=== PATIENT | female | born 1990 ===

== ENCOUNTER 2016-07-12 13:43 | Emergency (ER) | payer MEDICAID, OTHER ==
[~2016-07-12] VITALS: Ht 162.6 cm; Wt 52.3 kg
[~2016-07-12 13:43] MED LIST: LEVO50TA5 PO
[2016-07-12 13:45] VITALS: BP 116/66; PULSE 86; RESP 16; O2SAT 98
--- NOTE | 2016-07-12 15:39 | ED.REPORT ---
HPI-Back Pain Under 40 Date of Service July 12, 2016 ED Provider: Dr. Craven 26 y/o female with no pertinent hx presents to the ED complaining of lower back pain, onset 2 hours ago. She tripped over a car seat and landed on her hip on the floor. She reports numbness in her right leg going up to her hip. The pt states "the pain is travelling upwards with heat". Nursing Notes Stated Complaint: GLF,NUMBESS AND STABBING PAIN IN RT LEG AND BACK Chief Complaint: Back Pain or Injury Nursing Notes Reviewed: Yes Allergies: Coded Allergies: carisoprodol (Verified Allergy, Intermediate, Rash, 07/12/16) erythromycin base (Verified Allergy, Intermediate, Rash, 07/12/16) methocarbamol (Verified Allergy, Intermediate, Rash, 07/12/16) Scheduled Levothyroxine-Expunged Drug, Do Not Renew! (Synthroid-Expunged Drug, Do Not Renew!) 50 Mcg Tablet 0.05 MG PO DAILYAC 0.05 MG = 50 MCG Scheduled PRN Naproxen (Naproxen) 500 Mg Tab 500 MG PO BID PRN PRN For Pain oxyCODONE-Acetaminophen 5-325 mg (oxyCODONE-Acetaminophen 5-325 mg) 1 Each Tablet 1-2 TAB PO Q6H PRN PRN For Pain General Time Seen by MD: 15:39 Chief Complaint Back pain (post fall) Hx Obtained From: Patient Sudden in Onset?: Yes Onset Occurred: 1 - 4 hours ago Symptom Duration: Since onset Caused by: Fall Location: : Spinal lumbar area: Spinal sacral area Quality: Painful Radiation: : Right leg above knee Severity: Current: Severe Severity: Maximum: Severe Recent Healthcare: No recent doctor visit Similar Sx Previous: No Past Medical History Past Medical History Back fracture at 18 Thyroid issues Past Surgical History No history of spinal surgery Smoking History Unknown if Ever Smoker Social History Alcohol Use: "Social" Drug Use: Denies drug use Other Social History: Good social support Ambulatory Status Independent Review of Systems Musculoskeletal: Reports: Back pain, Extremity pain (right leg), Joint pain ( right hip) Complete sys rev & neg: except as marked. Physical Exam Initial Vital Signs Vital Signs (First) Date Time Temp Pulse Resp B/P Pulse Ox O2 Delivery O2 Flow Rate FiO2 07/12/16 13:45 36.4 86 16 116/66 98 Room Air Initial VS: Reviewed Head / Eyes: Atraumatic, Normocephalic, PERRL ENT: Mucous membranes moist, Conjunctiva normal, No scleral icterus Neck: Supple, Non-tender, Full range of motion Respiratory: Breath sounds normal, Clear to auscultation, No respiratory distress Cardiovascular: Heart sounds normal, Intact distal pulses Abdomen / GI: Soft, Non-tender, No guarding, No rebound, No distention General/Constitutional: Awake, Alert Distress / Hydration: Positive: Distress severe Back: Full range of motion Neurologic: Oriented X3, Speech NL, No motor deficits, No sensory deficits Lower Extremity / Pelvis / MS: Neurologic intact, Vascular intact Pain in L3 and sacrum region Pain in ischial tuberosity. Skin: No rash, Warm, Dry No bruising or ecchymosis. Interpretation & Diagnostics X-ray Lumbar spine 2 or 3 view. IMPRESSION: Mild degenerative changes of the lower lumbar spine. No acute fractures. Dictated by: Andrea Montano M.D. on 07/12/2016 at 15:25 Approved by: Andrea Montano M.D. on 07/12/2016 at 15:29 Lab Results Interpretation Test 07/12/16 15:31 Hold Urine Received (Received) X-Ray Interpretation Xray Interpretation: IMPRESSION: No acute fracture or dislocation of the right hip. Dictated by: Andrea Montano M.D. on 07/12/2016 at 15:22 Approved by: Andrea Montano M.D. on 07/12/2016 at 15:23 X-Ray Ordered: Hip right Re-Eval/Medical Decision Re-Evaluation/Progress : Time of Eval: 17:27 Patient Status: Mild relief Re-Evaluation/Progress Note: Rechecked pt. Discussed lab, imaging results and diagnosis. Informed the pt of the plan to discharge. Pt understands and agrees with plan. F/U instructions and RTER warning given. All questions addressed. Counseled Regarding: Diagnosis, Lab results, Need for follow-up, When/why to return to ED Discharge & Departure Impression: Primary Impression: Fall Encounter type: initial encounter Qualified Code: W19.XXXA - Unspecified fall, initial encounter Ruled Out: Fracture Disposition: Home All VS Reviewed: Yes Condition: Stable Patient Instructions: Acute Low Back Pain (ED) Additional Instructions: Your xray results of your spine, pelvis and hips were normal. There is no evidence of a fracture. Your leg and hip is likely to hurt more tomorrow- this is normal healing. Take naproxen 500mg am and pm to control the pain and inflamation. You can add 1 -2 Percocet every 6 hours for severe pain over the next for a couple of days. Use an ice pack today. Switch between hot and cold pack as needed after today. Good luck with being up and moving (the more you move, the faster you will heal ) with the "ousmane sore butt". Referrals: KRYSTYNA ARMENDARIZ (PCP) Scribe Attestation Portions of this note were transcribed by Leatha Vanessa. I, , personally performed the history, physical exam and medical decision-making;I reviewed and confirmed the accuracy of the information in the transcribed note. Signed by Dulce Sanchez. 07/12/16 [id number] copies to: [facility] Ciara Martinez MD July 12, 2016 15:39 Leatha Vanessa July 12, 2016 16:36
--- NOTE | 2016-07-12 16:25 | DRSVH ---
PROCEDURE: X-RAY PELVIS W/LAT HIP (RT) ([id number]) INDICATIONS: fell landed on hip severe pain. TECHNIQUE: AP pelvis and lateral view of the right hip acquired. COMPARISON: [facility], CR, SPINE LUMB 2 OR 3VW, 04/16/2012, 13:14. [facility], CR, PELVIS 1 OR 2VW, 07/19/2009, 20:56. FINDINGS: Bones: No acute fracture or dislocation of the right hip is evident. No significant degenerative nickolas nges are evident. There are mild degenerative changes of the sacroiliac joints. There appears to be transitional lumbosacral anatomy with bony fusion of the L5 transverse processes with the sacral ala . No suspicious osseous lesions are evident. Soft tissues: Overlying postoperative changes are noted. No suspicious soft tissue densities. IMPRESSION: No acute fracture or dislocation of the right hip. Dictated by: Andrea Montano M.D. on 07/12/2016 at 15:22 Approved by: Andrea Montano M.D. on 07/12/2016 at 15:23
--- NOTE | 2016-07-12 16:30 | DRSVH ---
PROCEDURE: X-RAY LUMBAR SPINE, 2 OR 3 VIEW INDICATIONS: pain previous fusions TECHNIQUE: 3 views of the lumbar spine were acquired. COMPARISON: [facility], , SPINE LUMB 2 OR 3VW, 04/16/2012, 13:14. FINDINGS: Bones: There is transitional lumbosacral anatomy. Rudimentary ribs at T12 are present. There is bon y fusion of the L5 transverse process with the sacral ala. 4 lumbar type vertebral bodies are presen t. The lowest intervertebral disk space is designated as L4-5. A rudimentary disc space at L5-S1 is present. The vertebral body heights are well-maintained without evidence to suggest an acute compre ssion fracture. The bone mineralization is within normal limits. Degenerative changes of the lower lumbar facet joints are present. Intervertebral disc spaces are we ll maintained with the exception of L5-S1. This appearance is unchanged. There is straightening of the normal lumbar lordosis. No spondylolisthesis is evident. Degenerative changes of the sacroiliac joints are present. Soft tissues: The soft tissues of the imaged abdomen and pelvis are within normal limits. IMPRESSION: Mild degenerative changes of the lower lumbar spine. No acute fractures. Dictated by: Andrea Montano M.D. on 07/12/2016 at 15:25 Approved by: Andrea Montano M.D. on 07/12/2016 at 15:29
[2016-07-12] MEDS ORDERED: oxyCODONE-Acetamin 5-325 mg Tablet PO ONE (17:15)
[2016-07-12] MEDS ORDERED: OXYC1TAB24 PO (17:36)
[2016-07-12] MEDS ORDERED: NPR500T PO (17:36)
[2016-07-12 18:37] LABS: APPEARANCE,URINE CLEAR (CLEAR,HAZY); COLOR,URINE YELLOW (YELLOW); OCCULT BLOOD,URINE NEGATIVE (NEGATIVE); UROBILINOGEN,URINE NORMAL (NORMAL)
== END 2016-07-12 18:09 | disposition home or self-care (01) ==
LOC: SED 13:43
DX: M54.5 Low back pain (principal); W01.0XXA Fall on same level from slipping, tripping and stumbling without subsequent striking against object, initial encounter; Y93.89 Activity, other specified; Y92.9 Unspecified place or not applicable; Y99.8 Other external cause status; E07.9 Disorder of thyroid, unspecified; Z88.1 Allergy status to other antibiotic agents; Z88.8 Allergy status to other drugs, medicaments and biological substances
CPT/HCPCS: 72100; 73501; 81000; 81025; 96372; 99284; J1885

== ENCOUNTER 2016-08-09 10:55 | Emergency (ER) | payer MEDICAID ==
[~2016-08-09] VITALS: Ht 162.6 cm; Wt 52.3 kg
[~2016-08-09 10:55] MED LIST changes: +NPR500T PO; +OXYC1TAB24 PO
[2016-08-09 11:04] VITALS: BP 119/45; PULSE 77; RESP 15; O2SAT 100
--- NOTE | 2016-08-09 12:08 | DRSVH ---
PROCEDURE: X-RAY RIGHT ANKLE, MINIMUM THREE VIEWS ([id number]) INDICATIONS: right ankle pain after rolling it TECHNIQUE: 3 views of the ankle were acquired. COMPARISON: None. FINDINGS: Bones: No fractures or dislocations. Ankle mortise is normally aligned. No suspicious bony lesions . Soft tissues: No tibiotalar joint effusion. Achilles tendon appears normal. IMPRESSION: 1. No fracture or dislocation. Dictated by: Pankaj Marte M.D. on 08/09/2016 at 12:04 Approved by: Pankaj Marte M.D. on 08/09/2016 at 12:06
--- NOTE | 2016-08-09 12:13 | ED.REPORT ---
HPI-Extremity Problem Lower Date of Service Aug 09, 2016 ED Provider: Rj Gann PA-C Julia is an otherwise healthy 26-year-old presenting with right ankle pain. Patient reports she inverted her ankle approximately one week ago and complains of increasing pain at this time as well as bruising. She has been walking on the affected limb. Denies numbness/tingling. Nursing Notes Stated Complaint: RIGHT ANKLE PAIN Chief Complaint: Extremity Trauma Nursing Notes Reviewed: Yes Allergies: Coded Allergies: carisoprodol (Verified Allergy, Intermediate, Rash, 08/09/16) erythromycin base (Verified Allergy, Intermediate, Rash, 08/09/16) methocarbamol (Verified Allergy, Intermediate, Rash, 08/09/16) Scheduled Levothyroxine-Expunged Drug, Do Not Renew! (Synthroid-Expunged Drug, Do Not Renew!) 50 Mcg Tablet 0.05 MG PO DAILYAC 0.05 MG = 50 MCG Scheduled PRN Hydrocodone-Acetaminophen 5-325 mg (Hydrocodone-Acetaminophen 5-325 mg) 1 Each Tablet 1-2 TABLET PO QID PRN PRN For Pain Naproxen (Naproxen) 500 Mg Tab 500 MG PO BID PRN PRN For Pain oxyCODONE-Acetaminophen 5-325 mg (oxyCODONE-Acetaminophen 5-325 mg) 1 Each Tablet 1-2 TAB PO Q6H PRN PRN For Pain General Time Seen by MD: 11:32 Chief Complaint Ankle injury right Past Medical History Past Medical History Back fracture at 18 Thyroid issues Past Surgical History No history of spinal surgery Smoking History Unknown if Ever Smoker Social History Alcohol Use: "Social" Drug Use: Denies drug use Other Social History: Good social support Ambulatory Status Independent Review of Systems Review of Systems Note: Negative unless stated otherwise in history of present illness Physical Exam Physical Exam Notes: General: Well appearing, well developed, well nourished, no acute distress. Left knee: Normal to inspection, nontender, full range of motion Left ankle: Extensive bruising on the medial and lateral aspects of the leg over the malleoli. Minimal swelling. Diffuse tenderness over malleoli, deltoid, anterior talofibular, calcaneofibular and posterior talofibular ligaments. Nontender over the navicular and the base of the fifth metatarsal. Normal Holloway's test. DP pulse 2+, PT pulse appreciated. Brisk capillary refill and sensation intact and distal phalanges. Limited range of motion in ankle. Full painless range of motion at MTP joints. Head: Atraumatic, normocephalic. Eyes: No scleral icterus or injection. No discharge. Vision grossly intact. ENT: Voice clear, hearing grossly intact. Respiratory: No respiratory distress, no increased work of breathing. Speaks in complete sentences. Skin: Warm and dry. Neurological: Grossly nonfocal. Psychological: alert and oriented. Speech appropriate, linear and logical. Behavior appropriate. Initial Vital Signs Vital Signs (First) Date Time Temp Pulse Resp B/P Pulse Ox O2 Delivery O2 Flow Rate FiO2 08/09/16 11:04 37.1 77 15 119/45 100 Room Air Initial VS: Vital signs normal Interpretation & Diagnostics X-Ray Interpretation Xray Interpretation: PROCEDURE: X-RAY RIGHT ANKLE, MINIMUM THREE VIEWS ([id number]) INDICATIONS: right ankle pain after rolling it IMPRESSION: 1. No fracture or dislocation. Interpretation / Wet Read by: Interpret - Radiologist, Interp - P Re-Eval/Medical Decision Med Decision/Clinical Course Otherwise healthy 26-year-old male presents with right ankle pain 1 week after inverting her ankle. She is able to ambulate on it with pain. Physical examination reveals extensive bruising and tenderness, neurovascularly intact. Achilles tendon is intact. X-rays reveal no fracture. She has painless passive range of motion of the toes, soft compartments and I am reassured against compartment syndrome. I believe this is an ankle sprain. Advised RICE , provided an Higinio wrap, stirrup splint, crutches. Advised [id number] analgesia with a small amount of hydrocodone to supplement with precautions. Provided orthopedic follow-up referral. Provided emergency return precautions. Patient verbalized understanding of, and consent to, the plan. Discharge & Departure Impression: Primary Impression: Right ankle sprain Encounter type: initial encounter Involved ligament of ankle: unspecified ligament Qualified Code: S93.401A - Sprain of unspecified ligament of right ankle, initial encounter Disposition: Home Patient Instructions: Crutch Instructions (ED), Ankle Sprain (GEN) Additional Instructions: Evaluation for right ankle pain in the emergency department consisted of history , physical examination and x-rays, all which are reassuring that this is unlikely to be a fracture. I believe you have sprained your ankle, which is an injury to the ligaments. We have placed the ankle and an Higinio wrap as well as a splint here in the emergency department. This is to support the ankle as well as reduce swelling. Feel free to remove both of these to bathe or adjust for comfort. We have also given crutches. Please do not bear weight on this ankle until you are seen by orthopedics. The pain is best treated with 600 mg of ibuprofen (Advil, Motrin) every 6 hours , or 1000 mg of acetaminophen (Tylenol) every 6 hours. These drugs can be taken at the same time for more severe pain. I will write a prescription for a small amount of oxycodone to be taken every 4- 6 hours for pain not controlled by these other medications. Please do not drive or drink alcohol within 4 hours of taking this medication. I have provided a referral to see Dr. Hassan, an orthopedic surgeon, for further assessment. Please contact his office this afternoon to arrange follow-up. Return to emergency department for any new or worsening symptoms including increasing pain, severe pain when you move your toes. Referrals: Robert Hassan MD EDSupervising Provider for APC: Ganga Gar MD copies to: Robert Hassan MD, Seth PA-C Aug 09, 2016 12:13
[2016-08-09] MEDS ORDERED: HYDR-4003 PO (12:34)
[2016-08-09 12:51] VITALS: BP 107/72; PULSE 57; RESP 16; O2SAT 98
== END 2016-08-09 12:52 | disposition home or self-care (01) ==
LOC: SED 10:55
DX: S93.401A Sprain of unspecified ligament of right ankle, initial encounter (principal); X50.0XXA Overexertion from strenuous movement or load, initial encounter; Y93.01 Activity, walking, marching and hiking; Y92.009 Unspecified place in unspecified non-institutional (private) residence as the place of occurrence of the external cause; Y99.8 Other external cause status; Z87.81 Personal history of (healed) traumatic fracture; Z86.39 Personal history of other endocrine, nutritional and metabolic disease; Z88.8 Allergy status to other drugs, medicaments and biological substances; Z88.1 Allergy status to other antibiotic agents
CPT/HCPCS: 29515; 73610; 96372; 99284; J1885